=== PATIENT | female | born 2000 | race Caucasian/White ===

== ENCOUNTER 2019-12-03 00:10 | Emergency (ER) | payer SELFPAY ==
[~2019-12-03] VITALS: Ht 154.9 cm; Wt 57.0 kg
[2019-12-03 01:05] VITALS: BP 99/56
== END 2019-12-03 01:05 | disposition home or self-care (01) | DRG 914 ==
LOC: ED 00:10
DX: S51.041A Puncture wound with foreign body of right elbow, initial encounter (principal); W01.118A Fall on same level from slipping, tripping and stumbling with subsequent striking against other sharp object, initial encounter; Y92.009 Unspecified place in unspecified non-institutional (private) residence as the place of occurrence of the external cause